=== PATIENT | male | born 1965 | race Caucasian/White ===

== ENCOUNTER → 2017-01-10 | Outpatient (CLI) | payer MEDICAID | LOC: COL.LAB 15:17 | DX: J32.4 Chronic pansinusitis (principal) ==

== ENCOUNTER 2017-08-26 12:12 | Emergency (ER) | payer SELFPAY ==
[~2017-08-26] VITALS: Ht 154.9 cm; Wt 109.1 kg
[2017-08-26 12:30] VITALS: TEMP 97.5
[2017-08-26] MEDS ORDERED: INDERAL 20MG20 MG PO (12:50)
[2017-08-26] MEDS ORDERED: COLACE 100100 MG/CAP PO (12:51)
[2017-08-26 13:51] LABS: BASO # 0.1 (0.0-0.2); BASO % 0.4 % (0.0-2.0); EOS # 0.2 (0.0-0.7); EOS % 1.7 % (0-4.0); GRAN # 7.6 (1.4-6.5); GRAN % 66.5 % (42.2-75.2); HEMATOCRIT 43.7 % (42.0-52.0); HEMOGLOBIN 14.5 g/dl (13.5-18.0); LYMPH # 2.6 (1.2-3.4); LYMPH % 22.9 % (20.0-51.0); MEAN CELL VOLUME 91 fl (80.0-100.0); MEAN CORPUSCULAR HEMOGLOBIN 30 pg (27.0-31.0); MEAN CORPUSCULAR HGB CONC 33 g/dl (33.0-37.0); MEAN PLATELET VOLUME 11.1 fl (7.4-10.4); MONO # 0.9 (0.1-0.6); MONO % 8.2 % (1.7-9.3); PLATELET COUNT 238 K/mm3 (130-400); RED BLOOD COUNT 4.83 M/mm3 (4.20-5.60); WHITE BLOOD COUNT 11.4 K/mm3 (4.8-10.8)
[2017-08-26 14:02] LABS: PROTHROMBIN TIME 10.9 SECONDS (9.7-12.8)
[2017-08-26 14:05] LABS: ALBUMIN 4.4 gm/dL (3.5-5.0); BILIRUBIN,TOTAL 0.5 mg/dL (0.0-1.0); C-REACTIVE PROTEIN 1.7 mg/dL (0.0-0.9); CALCIUM 9.3 mg/dL (8.4-10.2); CREATININE, serum 0.98 mg/dL (0.66-1.25); PARTIAL THROMBOPLASTIN TIME 31.8 SECONDS (26.0-37.0); POTASSIUM 4.1 mmol/L (3.4-5.0); TOTAL PROTEIN 8.6 gm/dL (6.4-8.2)
[2017-08-26 14:08] LABS: D-DIMER < 200.00 ng/mLDDu (200-230)
[2017-08-26 14:20] LABS: ERYTHROCYTE SEDIMENTATION RATE 22 mm/hr (0-30)
[2017-08-26] MEDS ORDERED: NORCO 325 MG-51 TAB PO (15:34)
[2017-08-26] MEDS ORDERED: DOXYCYCLINE 10100 MG PO (15:34)
[2017-08-26] MEDS ORDERED: INDOCIN50 MG PO (15:34)
[2017-08-26 15:59] VITALS: BP 152/98; PULSE 71
== END 2017-08-26 16:05 | disposition home or self-care (01) ==
LOC: COL.ER 12:12
PROVIDERS: Emergency Medicine
DX: L08.9 Local infection of the skin and subcutaneous tissue, unspecified (principal); I10 Essential (primary) hypertension; Z86.718 Personal history of other venous thrombosis and embolism